=== PATIENT | female | born 1975 | race African-American/Black ===

== ENCOUNTER → 2024-05-19 09:47 | Outpatient (REF) | payer OTHER, SELFPAY | LOC: HWWDC 09:47 | PROVIDERS: ATTENDING PHYSICIAN Family Medicine; FAMILY PHYSICIAN Family Medicine | DX: Z12.31 Encounter for screening mammogram for malignant neoplasm of breast (principal) | CPT/HCPCS: 77063; 77067 ==

== ENCOUNTER → 2025-05-28 16:45 | Outpatient (REF) | payer OTHER, SELFPAY | LOC: WDC 16:45 | PROVIDERS: ATTENDING PHYSICIAN Family Medicine | DX: Z12.31 Encounter for screening mammogram for malignant neoplasm of breast (principal) | CPT/HCPCS: 77063; 77067 ==